=== PATIENT | male | born 1985 | race Caucasian/White ===

== ENCOUNTER 2023-05-06 20:24 | Emergency (ER) | payer OTHER ==
[~2023-05-06] VITALS: Ht 180.3 cm; Wt 87.0 kg
[2023-05-06 20:39] VITALS: BP 142/94; PULSE 54; RESP 16; TEMP 98.6; O2SAT 98
== END 2023-05-06 22:07 | disposition left against medical advice (07) ==
LOC: ER 20:24
DX: F10.129 Alcohol abuse with intoxication, unspecified (principal); Z53.21 Procedure and treatment not carried out due to patient leaving prior to being seen by health care provider
CPT/HCPCS: 99281